=== PATIENT | male | born 1980 | race Caucasian/White ===

== ENCOUNTER 2021-08-12 11:03 | Emergency (ER) | payer BC, OTHER ==
[~2021-08-12] VITALS: Ht 188 cm; Wt 113.8 kg
[2021-08-12 11:27] LABS: BASOPHILS % (AUTO) 1 % (0-10); EOSINOPHILS # (AUTO) 0.2 10^3/uL (0.0-0.3); EOSINOPHILS % (AUTO) 3 % (0-10); HEMATOCRIT 43 % (40-54); HEMOGLOBIN 14.4 g/dL (13.3-17.7); LYMPHOCYTES # (AUTO) 2.6 10^3/uL (1.0-4.0); LYMPHOCYTES % (AUTO) 43 % (12-44); MEAN CORPUSCULAR HEMOGLOBIN 29 pg (25-34); MEAN CORPUSCULAR HGB CONC 33 g/dL (32-36); MEAN CORPUSCULAR VOLUME 88 fL (80-99); MEAN PLATELET VOLUME 9.4 fL (9.0-12.2); MONOCYTES # (AUTO) 0.4 10^3/uL (0.0-1.0); MONOCYTES % (AUTO) 6 % (0-12); NEUTROPHILS # (AUTO) 2.8 10^3/uL (1.8-7.8); NEUTROPHILS % (AUTO) 47 % (42-75); PLATELET COUNT 237 10^3/uL (130-400)
--- NOTE | 2021-08-12 11:31 | ED Neurological Problem ---
General Stated Complaint: LEFT SIDE IS NUMB Source: patient, spouse Exam Limitations: no limitations History of Present Illness Date Seen by Provider: Aug 12, 2021 Time Seen by Provider: 11:06 Initial Comments 41 yo male presenting with complaint of waking up around 10 am with left hand and arm feeling numb and like it was asleep. He thought that he had slept on it wrong but that was not waking up for him. He went to the bathroom and was brushing his teeth and noticed that his left side of his face felt numb as well. He states it feels like he had Novocain injected into his mouth. He then started feeling like his left leg was numb. As it was not improving over 45 minutes to an hour since he woke up his told him that they should come to the ED to get checked out since they have insurance. He denies any head injury or trauma. He did have an "ablation of his spine" at in July. He denies headache, fever, chills, chest pain, cough, shortness of breath, abdominal pain, nausea, vomiting, pain with urination, change in his bowels, change in his vision. He did not take his blood pressure medicine prior to coming to the ED because he did not want it to "counteract anything you might give me". He was worried because his Dad had "some blockages" so he wanted checked out when the numbness was not going away. He reports it feels like he is numb on the left s manda from his head all the way down to his foot. However, with light touch he reports it feels the same when touching both sides. Timing/Duration: 1 hour (woke up with symptoms around 10 am) Severity: mild Associated Symptoms: No confusion, No fatigue, No fever/chills, No insomnia, No loss of consciousness, No muscle spasms, No nausea/vomiting, No ringing in ears, No seizures, No sleepy, No slurred speech, No trouble walking, No vision changes , No weakness Allergies and Home Medications Allergies Coded Allergies: No Known Drug Allergies (Unverified , 08/12/21) Patient Home Medication List Home Medication List Reviewed: Yes Losartan/Hydrochlorothiazide (Losartan-Hctz 50-12.5 mg Tab) 1 Each Tablet, 1 TAB PO DAILY, (Reported) Entered as Reported by: ELOY BRISCOE on 08/12/21 1135 Last Action: New Order Review of Systems Review of Systems Constitutional: No chills, No fever Eyes: Denies Blindness, Denies Blurred Vision, Denies Drainage, Denies Decreased Acuity, Denies Photophobia, Denies Tunnel Vision, Denies Vision Changes Ears, Nose, Mouth, Throat: denies nose pain, denies nose discharge, denies epistaxis, denies mouth swelling Respiratory: No cough, No short of breath Cardiovascular: No chest pain, No edema Gastrointestinal: No abdominal pain, No nausea, No vomiting Genitourinary: No dysuria Musculoskeletal: no symptoms reported Skin: No rash Psychiatric/Neurological: See HPI; Denies Headache, Denies Tonic Clonic Seizures, Denies Unable to Move Lower Ext, Denies Unable to Move Upper Ext Hematologic/Lymphatic: Denies Blood Clots Past Hsdzsty-Rygbaj-Abtgaf Hx Patient Social History Tobacco Use?: No Substance use?: No Past Medical History Surgery/Hospitalization HX: Essential Hypertension Surgeries: Yes Orthopedic Cardiac: Yes Hypertension Physical Exam Vital Signs Vital Signs - First Documented 08/12/21 08/12/21 11:07 14:22 Temp 36.7 Pulse 99 Resp 19 B/P (MAP) 149/92 (111) Pulse Ox 100 O2 Delivery Room Air Capillary Refill : Height, Weight, BMI Height: '" Weight: lbs. oz. kg; BMI Method: General Appearance: WD/WN, no apparent distress HEENT: PERRL/EOMI, normal ENT inspection, TMs normal, pharynx normal Neck: non-tender, full range of motion, supple, normal inspection Respiratory: chest non-tender, lungs clear, normal breath sounds, no res piratory distress, no accessory muscle use Cardiovascular: normal peripheral pulses, regular rate, rhythm, no murmur Gastrointestinal: normal bowel sounds, non tender, soft, no pulsatile mass Extremities: normal range of motion, non-tender, normal inspection, no pedal edema, no calf tenderness, normal capillary refill Neurologic/Psychiatric: insurance compliance analyst II-XII nml as tested, no motor/sensory deficits (sensation intact to light touch), alert, oriented x 3 Crainal Nerves: normal hearing, normal speech, PERRL Coordination/Gait: normal gait Motor/Sensory: no motor deficit, no sensory deficit Skin: normal color, warm/dry; No rash Stroke Onset of Symptoms Date of Onset of Symptoms: Aug 12, 2021 Time of Symptom Onset: 10:00 Onset of Symptoms: Yes (woke up around 10 am with symptoms) NIH Stroke Scale Assessment Select: Initial Level of Consciousness: 0=Alert (0), Level of Consciousness- Questions: 0=Answers both month/age (0), LOC Commands: 0=Performs both tasks (0), Gaze: Normal (0), Visual Lopez: 0=No visual loss (0), Facial Movement (Facial Paresis): 0=Normal symmetrical mnt (0), Motor Function-Arms Right: 0=No drift (0), Motor Function-Arms Left: 0=No drift (0), Motor Function-Legs Right: 0=No drift (0), Motor Function-Legs Left: 0=No drift (0), Limb Ataxia: 0=Absent (0), Sensory: 0=Normal:no loss (0), Best Language: 0=No aphasia (0), Dysarthria: 0=Normal (0), Extinction & Inattention: 0=No abnormality (0), Total: 0 Stroke Thrombolytic Exclusion Age 18 or Over: Yes Acute intenal hemorrhage: No History of CVA: No Uncontrolled Coagulation Defec: No Intracranial Hemorrhage: No Severe Hypertension: No GI or Bleed: No Subarachnoid Hemorrhage: No Intracranial Neoplasm/Aneurysm: No Oral Anticoagulants: No Surgery or Trauma: Yes ("ablation of back" in Jul 2021) Puncture of Non-Compressible V: No Recent CPR: No Diabetic Hemorrhagic Retinopat: No Organ Biopsy: No Recent Obstetric Delivery: No Glucose: No Significant Hepatic Dysfunctio: No NIH Stoke Scale >22: No Bacterial Endocarditis: No Pericarditis: No Improving Symptoms: No Platelets: No Progress/Results/Core Measures Results/Orders Lab Results Laboratory Tests Test 08/12/21 11:22 08/12/21 13:46 Range/Units White Blood Count 6.0 4.3-11.0 10^3/uL Red Blood Count 4.95 4.30-5.52 10^6/uL Hemoglobin 14.4 13.3-17.7 g/dL Hematocrit 43 40-54 % Mean Corpuscular Volume 88 80-99 fL Mean Corpuscular Hemoglobin 29 25-34 pg Mean Corpuscular Hemoglobin Concent 33 32-36 g/dL Red Cell Distribution Width 13.3 10.0-14.5 % Platelet Count 237 130-400 10^3/uL Mean Platelet Volume 9.4 9.0-12.2 fL Immature Granulocyte % (Auto) 0 % Neutrophils (%) (Auto) 47 42-75 % Lymphocytes (%) (Auto) 43 12-44 % Monocytes (%) (Auto) 6 0-12 % Eosinophils (%) (Auto) 3 0-10 % Basophils (%) (Auto) 1 0-10 % Neutrophils # (Auto) 2.8 1.8-7.8 10^3/uL Lymphocytes # (Auto) 2.6 1.0-4.0 10^3/uL Monocytes # (Auto) 0.4 0.0-1.0 10^3/uL Eosinophils # (Auto) 0.2 0.0-0.3 10^3/uL Basophils # (Auto) 0.0 0.0-0.1 10^3/uL Immature Granulocyte # (Auto) 0.0 0.0-0.1 10^3/uL Prothrombin Time 13.0 12.2-14.7 SEC INR Comment 1.0 0.8-1.4 Activated Partial Thromboplast Time 27 24-35 SEC Sodium Level 140 135-145 MMOL/L Potassium Level 4.0 3.6-5.0 MMOL/L Chloride Level 102 98-107 MMOL/L Carbon Dioxide Level 27 21-32 MMOL/L Anion Gap 11 5-14 MMOL/L Blood Urea Nitrogen 19 H 7-18 MG/DL Creatinine 1.12 0.60-1.30 MG/DL Estimat Glomerular Filtration Rate 84 BUN/Creatinine Ratio 17 Glucose Level 109 H 70-105 MG/DL Calcium Level 9.7 8.5-10.1 MG/DL Corrected Calcium 8.5-10.1 MG/DL Total Bilirubin 0.6 0.1-1.0 MG/DL Aspartate Amino Transf (AST/SGOT) 21 5-34 U/L Alanine Aminotransferase (ALT/SGPT) 28 0-55 U/L Alkaline Phosphatase 86 40-136 U/L Troponin I < 0.30 <0.30 NG/ML Pro-B-Type Natriuretic Peptide < 5.0 <75.0 PG/ML Total Protein 8.0 6.4-8.2 GM/DL Albumin 4.8 H 3.2-4.5 GM/DL Serum Alcohol < 10 <10 MG/DL Urine Color YELLOW Urine Clarity CLEAR Urine pH 7.0 5-9 Urine Specific [place] <=1.005 1.016-1.022 Urine Protein NEGATIVE NEGATIVE Urine Glucose (UA) NEGATIVE NEGATIVE Urine Ketones NEGATIVE NEGATIVE Urine Nitrite NEGATIVE NEGATIVE Urine Bilirubin NEGATIVE NEGATIVE Urine Urobilinogen 0.2 < = 1.0 MG/DL Urine Leukocyte Esterase NEGATIVE NEGATIVE Urine RBC (Auto) NEGATIVE NEGATIVE Urine RBC NONE /HPF Urine WBC NONE /HPF Urine Squamous Epithelial Cells 0-2 /HPF Urine Crystals NONE /LPF Urine Bacteria NEGATIVE /HPF Urine Casts NONE /LPF Urine Mucus NEGATIVE /LPF Urine Culture Indicated NO Urine Opiates Screen NEGATIVE NEGATIVE Urine Oxycodone Screen NEGATIVE NEGATIVE Urine Methadone Screen NEGATIVE NEGATIVE Urine Propoxyphene Screen NEGATIVE NEGATIVE Urine Barbiturates Screen NEGATIVE NEGATIVE Ur Tricyclic Antidepressants Screen POSITIVE H NEGATIVE Urine Phencyclidine Screen NEGATIVE NEGATIVE Urine Amphetamines Screen NEGATIVE NEGATIVE Urine Methamphetamines Screen NEGATIVE NEGATIVE Urine Benzodiazepines Screen NEGATIVE NEGATIVE Urine Cocaine Screen NEGATIVE NEGATIVE Urine Cannabinoids Screen NEGATIVE NEGATIVE My Orders Orders - ELOY BRISCOE MD Cbc With Automated Diff (08/12/21 11:20) Protime With Inr (08/12/21 11:20) Partial Thromboplastin Time (08/12/21 11:20) Comprehensive Metabolic Panel (08/12/21 11:20) Troponin I Fs (08/12/21 11:20) Ua Culture If Indicated (08/12/21 11:20) Chest 1 View Ap/Pa Only (08/12/21 11:20) Ekg Tracing (08/12/21 11:20) Ed Iv/Invasive Line Start (08/12/21 11:20) Vital Signs Stroke Patient Q15M (08/12/21 11:20) Ct Head Wo-R/O Stroke (08/12/21 11:20) O2 (08/12/21 11:20) Intake & Output 06,14,22 (08/12/21 11:20) Monitor-Rhythm Ecg Trace Only (08/12/21 11:20) Dysphagia Screening Tool (08/12/21 11:20) Probnp Fs (08/12/21 11:20) Alcohol (08/12/21 11:20) Drug Screen Stat (Urine) (08/12/21 11:20) Ct Angio Head/Neck (08/12/21 12:25) Ns Iv 1000 Ml (Sodium Chloride 0.9%) (08/12/21 12:25) Iohexol Injection (Omnipaque 350 Mg/Ml 1 (08/12/21 12:45) Received Contrast (Hold Metformin- Contr (08/12/21 12:45) Sodium Chloride Flush (Catheter Flush Sy (08/12/21 12:45) Ns (Ivpb) (Sodium Chloride 0.9% Ivpb Bag (08/12/21 12:45) Iohexol Injection (Omnipaque 350 Mg/Ml 1 (08/12/21 13:00) Received Contrast (Hold Metformin- Contr (08/12/21 13:00) Sodium Chloride Flush (Catheter Flush Sy (08/12/21 13:00) Ns (Ivpb) (Sodium Chloride 0.9% Ivpb Bag (08/12/21 13:00) Ketorolac Injection (Toradol Injection) (08/12/21 14:13) Diphenhydramine Injection (Benadryl Inje (08/12/21 14:13) Ondansetron Injection (Zofran Injectio (08/12/21 14:13) Vital Signs/I&O 08/12/21 08/12/21 11:07 14:22 Temp 36.7 Pulse 99 87 Resp 19 17 B/P (MAP) 149/92 (111) 136/74 Pulse Ox 100 O2 Delivery Room Air Room Air Progress Progress Note #1: Progress Note Although pt reports numbness to left side of body he has sensation intact to light touch bilaterally. NIHSS is 0 on initial presentation. Will obtain CT scan of head and leabs to check out his heart and brain. Differential diagnosis includes anxiety, pinched nerve, stroke, TIA, peripheral neuropathy Progress Note #2: Time: 12:20 Progress Note Labs appear stable without acute significant abnormality. He had mild elevation of BUN to 19 so he might be slightly dry. His electrocardiogram does not show any acute significant abnormality. His troponin is negative at less than 0.3. His chest x-ray shows no acute process. His CT scan of the head shows no acute process or stroke. Patient reports that he has had some improvement in his sensation of the left side of his body but this is all still present. He continues to deny any weakness or decreased strength. Will add on a liter of normal saline IV fluids for hydration and CT angiogram of the head and neck to look for any large vessel occlusion or thrombus. Progress Note #3: Time: 13:[address] angiogram of head and neck were negative for acute abnormality. D/w Dr. 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 He agreed that pt was not a TPA candidate since he had no severe focal deficit and was not having findings on imaging. He had very low NIHSS so the TPA would not be indicated. He recommends trying to treat for complex migraine with cocktail and to check about seizure type history. If concern for TIA then he may still need further work-up for that but otherwise hopefully the migraine cocktail would help. If he has concern for seizures to it. With outpatient EEG. If he has worsening symptoms then again he would need continued work-up for further evaluation. Progress Note #4: Time: 14:08 Progress Note updated pt and spouse about findings and results. UA negative for acute abnormality as well. UDS shows only tricyclic which is likely from his cyclobenzaprine he is taking for his back. The neurologist did mention that he could be having some referred symptoms from the back pain as well. Since he is still having some spasms in his back and is scheduled to see physical therapy this week that is another possibility. Advised that we would try a combination of Toradol, Benadryl, Zofran for migraine cocktail and then plan on discharging him to let him rest and get something to eat. Encourage him to go ahead and take his blood pressure medicine from this morning. Initial ECG Impression Date: Aug 12, 2021 Initial ECG Impression Time: 11:40 Initial ECG Rate: 81 Initial ECG Rhythm: Normal Sinus Initial ECG Comparisson: No Previous ECG Available Comment Normal sinus rhythm with a heart rate of [address] elevation. NM interval 142 ms. QT interval 353 ms with a QTc interval 410 ms. There is no prior tracing available for comparison. Diagnostic Imaging Diagonstic Imaging: Xray Plain Films/CT/US/NM/MRI: chest Comments [facility] [place], [place] NAME: VAMSHI WILKINS MED REC#: [id number] PT STATUS: REG ER : 1980 PHYSICIAN: ELOY BRISCOE MD ADMIT DATE: 08/12/21/ER FS Draft Date of Exam:08/12/21 CHEST 1 VIEW AP/PA ONLY INDICATION: Left-sided numbness. FINDINGS: Lungs are clear. No failure, effusion or pneumothorax. No free air beneath the diaphragms. Cardiomediastinal and hilar contours normal. IMPRESSION: Unremarkable frontal chest. Dictated on workstation # [id number] Dict: 08/12/21 1137 Trans: 08/12/21 1143 [id number] Interpreted by: FERNANDO RUTHERFORD Electronically signed by: Reviewed: Reviewed by Nv Diagonstic Imaging: CT Plain Films/CT/US/NM/MRI: head Comments [facility] [place] [place] NAME: FRANKYVAMSHI Trulioo REC#: [id number] PT STATUS: REG ER : 1980 PHYSICIAN: ELOY BRISCOE MD ADMIT DATE: 08/12/21/ER FS Draft Date of Exam:08/12/21 CT HEAD WO-R/O STROKE PROCEDURE: CT head wo r/o stroke. TECHNIQUE: Multiple contiguous axial images were obtained through the brain without the use of intravenous contrast. Auto Exposure Controls were utilized during the CT exam to meet ALARA standards for radiation dose reduction. INDICATION: 1 hours left-sided numbness. No priors. FINDINGS: There is no intracranial hemorrhage, hydrocephalus, edema, mass, mass effect nor evidence for an elevation intracerebral pressures. The basilar cisterns patent. There is no sulcal effacement. No mass or mass effect. The orbits, sinuses and calvarium nonacute. Ventricular system nondilated and nondisplaced. Midline structures nondisplaced. IMPRESSION: This is a normal noncontrasted CT head. Dictated on workstation # [id number] Dict: 08/12/21 1135 Trans: 08/12/21 1141 [id number] Interpreted by: FERNANDO RUTHERFORD Electronically signed by: Diagonstic Imaging: CT (angio) Plain Films/CT/US/NM/MRI: head (and neck) Comments NAME: VAMSHI WILKINS Trulioo REC#: [id number] PT STATUS: REG ER : 1980 PHYSICIAN: ELOY BRISCOE MD ADMIT DATE: 08/12/21/ER FS Draft Date of Exam:08/12/21 CT ANGIO HEAD/NECK PROCEDURE: CT angiography of the head and CT angiography of the neck with and without contrast. TECHNIQUE: Contiguous noncontrast images were obtained from the skull base through the vertex. After intravenous contrast administration, helical CT angiography of the neck was performed. Source data was reformatted into 3D MIP projections. Delayed post contrast acquisition was also obtained. Auto Exposure Controls were utilized during the CT exam to meet ALARA standards for radiation dose reduction. INDICATION: New onset left-sided numbness. COMPARISON: Noncontrast head CT earlier today. DISCUSSION: CT head: No acute intracranial hemorrhage, mass, midline shift, or hydrocephalus. The ventricles and sulci are normal size and configuration for age. The visualized portions of the orbits, paranasal sinuses, mastoid air cells, and calvarium are unremarkable. CTA head: Intracranial arterial luminal enhancement and morphology are normal without focal stenosis, major vessel cut off, aneurysm, or vascular malformation. The [place] of [place] is complete. Visualized venous structures are unremarkable. CTA neck: The arch has conventional branch configuration. The vertebral arteries are codominant. The carotid arteries bifurcate midneck without focal stenosis, vessel cut off, or vascular malformation within the neck. The visualized soft tissues are unremarkable. IMPRESSION: 1. Unremarkable CTA of the head and neck. Dictated on workstation # [id number] Dict: 08/12/21 1259 Trans: 08/12/21 1310 [facility] [id number] Interpreted by: RUSSELL BOYD MD Electronically signed by: Reviewed: Reviewed by Me Departure Impression Primary Impression: Numbness on left side Disposition: HOME, SELF-CARE Condition: Stable Departure-Patient Inst. Decision time for Depature: 14:10 Referrals: [facility] Patient Instructions: Paresthesia (DC) Add. Discharge Instructions: Your test today did not show any signs of stroke, heart attack, electrolyte imbalance or infection. You were given IV fluids for hydration and medication combination for a possible atypical migraine. If you have continued symptoms or more concerns certainly you should follow up through the primary care provider or neurology for further evaluation. If you have worsening or new symptoms you could be evaluated again to see if there was anything new or different showing up on the testing. ELOY BRISCOE MD Aug 12, 2021 11:31
[2021-08-12] MEDS ORDERED: LOSA1TAB20 PO (11:35)
--- NOTE | 2021-08-12 11:42 | Diagnostic Imaging Report ---
PROCEDURE: CT head wo r/o stroke. TECHNIQUE: Multiple contiguous axial images were obtained through the brain without the use of intravenous contrast. Auto Exposure Controls were utilized during the CT exam to meet ALARA standards for radiation dose reduction. INDICATION: 1 hours left-sided numbness. No priors. FINDINGS: There is no intracranial hemorrhage, hydrocephalus, edema, mass, mass effect nor evidence for an elevation intracerebral pressures. The basilar cisterns patent. There is no sulcal effacement. No mass or mass effect. The orbits, sinuses and calvarium nonacute. Ventricular system nondilated and nondisplaced. Midline structures nondisplaced. IMPRESSION: This is a normal noncontrasted CT head. Dictated by: Dictated on workstation # [id number]
--- NOTE | 2021-08-12 11:44 | Diagnostic Imaging Report ---
INDICATION: Left-sided numbness. FINDINGS: Lungs are clear. No failure, effusion or pneumothorax. No free air beneath the diaphragms. Cardiomediastinal and hilar contours normal. IMPRESSION: Unremarkable frontal chest. Dictated by: Dictated on workstation # [id number]
[2021-08-12 11:48] LABS: BUN/CREATININE RATIO 17; CALCIUM 9.7 MG/DL (8.5-10.1); CARBON DIOXIDE 27 MMOL/L (21-32); CHLORIDE 102 MMOL/L (98-107); CREATININE SERUM 1.12 MG/DL (0.60-1.30); GFR ESTIMATED 84; GLUCOSE 109 MG/DL (70-105); SODIUM 140 MMOL/L (135-145)
[2021-08-12 11:49] LABS: ALANINE AMINOTRANSFERASE 28 U/L (0-55); ALBUMIN 4.8 GM/DL (3.2-4.5); ALKALINE PHOSPHATASE 86 U/L (40-136); BILIRUBIN,TOTAL 0.6 MG/DL (0.1-1.0)
[2021-08-12] MEDS ORDERED: NS IV 1000 ML 1,000 ML IV STA (12:25)
[2021-08-12] MEDS ORDERED: CATHETER FLUSH 10 ML SYR IV PRN ×2 (12:45→13:00)
[2021-08-12] MEDS ORDERED: IOHEXOL 350 MG/ML 100 ML (OMNIPAQUE 350) VIAL IV ONE ×2 (12:45→13:00)
[2021-08-12] MEDS ORDERED: NS 100 ML (IVPB) BAG IV ONE ×2 (12:45→13:00)
[2021-08-12] MEDS ORDERED: HOLD METFORMIN - RECEIVED CONTRAST 20 ML VIAL IV SCH ×2 (12:45→13:00)
--- NOTE | 2021-08-12 13:10 | Diagnostic Imaging Report ---
PROCEDURE: CT angiography of the head and CT angiography of the neck with and without contrast. TECHNIQUE: Contiguous noncontrast images were obtained from the skull base through the vertex. After intravenous contrast administration, helical CT angiography of the neck was performed. Source data was reformatted into 3D MIP projections. Delayed post contrast acquisition was also obtained. Auto Exposure Controls were utilized during the CT exam to meet ALARA standards for radiation dose reduction. INDICATION: New onset left-sided numbness. COMPARISON: Noncontrast head CT earlier today. DISCUSSION: CT head: No acute intracranial hemorrhage, mass, midline shift, or hydrocephalus. The ventricles and sulci are normal size and configuration for age. The visualized portions of the orbits, paranasal sinuses, mastoid air cells, and calvarium are unremarkable. CTA head: Intracranial arterial luminal enhancement and morphology are normal without focal stenosis, major vessel cut off, aneurysm, or vascular malformation. The [place] is complete. Visualized venous structures are unremarkable. CTA neck: The arch has conventional branch configuration. The vertebral arteries are codominant. The carotid arteries bifurcate midneck without focal stenosis, vessel cut off, or vascular malformation within the neck. The visualized soft tissues are unremarkable. IMPRESSION: 1. Unremarkable CTA of the head and neck. Dictated by: Dictated on workstation # [id number]
[2021-08-12 13:51] LABS: BILIRUBIN,URINE NEGATIVE (NEGATIVE); CLARITY,URINE CLEAR; COLOR,URINE YELLOW; GLUCOSE, URINE (UA) NEGATIVE (NEGATIVE); KETONES,URINE NEGATIVE (NEGATIVE); LEUKOCYTE ESTERASE ,URINE NEGATIVE (NEGATIVE); NITRITE,URINE NEGATIVE (NEGATIVE); PROTEIN,URINE NEGATIVE (NEGATIVE)
[2021-08-12 13:54] LABS: BACTERIA,URINE NEGATIVE /HPF; SQUAMOUS EPITHELIAL CELL,UR 0-2 /HPF
[2021-08-12 14:00] LABS: AMPHETAMINE SCREEN, URINE NEGATIVE (NEGATIVE); BARBITURATE SCREEN URINE NEGATIVE (NEGATIVE); BENZODIAZEPINES SCREEN URINE NEGATIVE (NEGATIVE); CANNABINOID SCREEN, URINE NEGATIVE (NEGATIVE); COCAINE SCREEN URINE NEGATIVE (NEGATIVE); METHADONE STAT NEGATIVE (NEGATIVE); METHAMPHETAMINE SCREEN URINE S NEGATIVE (NEGATIVE); OPIATE SCREEN URINE NEGATIVE (NEGATIVE); OXYCODONE STAT NEGATIVE (NEGATIVE); PROPOXYPHENE STAT NEGATIVE (NEGATIVE); TRICYCLIC ANTIDEPRESSANTS SCRE POSITIVE (NEGATIVE)
[2021-08-12] MEDS ORDERED: diphenhydrAMINE 50 MG/ML INJ (BENADRYL) IVP STA (14:13)
[2021-08-12] MEDS ORDERED: ONDANSETRON 4 MG/2 ML (SDV) Z0FRAN IVP STA (14:13)
[2021-08-12] MEDS ORDERED: KETOROLAC 30 MG/ML VIAL IVP STA (14:13)
[2021-08-12 14:22] VITALS: BP 136/74
== END 2021-08-12 14:22 | disposition home or self-care (01) ==
LOC: ER FS 11:07
DX: R20.0 Anesthesia of skin (principal)
CPT/HCPCS: 36415; 70450; 70496; 70498; 71045; 80053; 80306; 81000; 83880; 84484; 85025; 85610; 85730; 93005; 93041; 99284; G0480; 80320; Q9967